=== PATIENT | female | born 1965 | race Caucasian/White ===

== ENCOUNTER 2019-04-25 13:18 | Day surgery (SDC) | payer OTHER ==
[~2019-04-25 13:18] MED LIST: BUPR150T14 PO; CHOL100045 PO; LISI-552 PO
[2019-04-25] MEDS ORDERED: LACTATED RINGERS 1,000 ML IV STA (13:26)
[2019-04-25] MEDS ORDERED: LACTATED RINGERS 1,000 ML IV ONE (13:27)
[2019-04-25] MEDS ORDERED: HURRICAINE EXT TUBE (BENZOCAINE) XX PRN (13:30)
[2019-04-25 13:35] VITALS: BP 133/70
[2019-04-25] MEDS ORDERED: PROPOFOL INJECTION 50 ML IV ONE (13:44)
[2019-04-25] MEDS ORDERED: MIDAZOLAM 2 MG/2 ML (VERSED) VIAL ONE (13:46)
[2019-04-25] MEDS ORDERED: HURRICAINE EXT TUBE (BENZOCAINE) ONE (14:01)
--- NOTE | 2019-04-25 14:11 | Progress Note-Pre Operative ---
Pre-Operative Progress Note H&P Reviewed The H&P was reviewed, patient examined and no changes noted. Date Seen by Provider: Apr 25, 2019 Time Seen by Provider: 14:10 Date H&P Reviewed: Apr 25, 2019 Time H&P Reviewed: 14:10 Pre-Operative Diagnosis: epigastric abdominal pain, nausea, family history of colon cancer SAYRA GRUBER DO Apr 25, 2019 14:11 POS
[2019-04-25] MEDS ORDERED: proPOfol 200 MG/20 ML (DIPRIVAN) VIAL IV ONE (14:35)
[2019-04-25 14:45] VITALS: BP 121/84
[2019-04-25] MEDS ORDERED: PANT40TA2 PO (14:48)
--- NOTE | 2019-04-25 14:49 | Progress Note-Post Operative ---
Post-Operative Progess Note Surgeon (s)/Certified Ophthalmic Surgical Assistant (s) Surgeon SAYRA GRUBER DO Certified Ophthalmic Surgical Assistant: na Pre-Operative Diagnosis epigastric abdominal pain, nausea, family history of colon cancer Post-Operative Diagnosis diverticulosis, colon polyps x 2, gastritis Procedure & Operative Findings Date of Procedure 04/25/19 Procedure Performed/Findings colonoscopy with hot biopsy polypectomy x 2, EGD with biopsies Anesthesia Type per diesel technician Estimated Blood Loss Estimated blood loss (mL): none Specimens/Packing Specimens Removed biopsy of GE junction, antrum, transverse colon polyp, sigmoid polyp SAYRA GRUBER DO Apr 25, 2019 14:49 POS
[2019-04-25 14:50] VITALS: BP 103/60
--- NOTE | 2019-04-25 14:50 | Discharge Inst-Simple/Standard ---
Discharge Inst-Standard Discharge Medications New, Converted or Re-Newed RX: RX on Chart Patient Instructions/Follow Up Plan of Care/Instructions/FU: follow up nicole 2-3 weeks. Activity as Tolerated: Yes Discharge Diet: Regular Diet (high fiber) SAYRA GRUBER DO Apr 25, 2019 14:49 POS
[2019-04-25 14:55] VITALS: BP 103/60
--- NOTE | 2019-04-25 14:58 | Anesthesia-General Post-Op ---
MAC Patient Condition Mental Status/LOC: Same as Preop Cardiovascular: Satisfactory Nausea/Vomiting: Absent Respiratory: Satisfactory Pain: Controlled Complications: Absent Post Op Complications Complications None Follow Up Care/Instructions Patient Instructions None needed. Anesthesiology Discharge Order Discharge Order Patient is doing well, no complaints, stable vital signs, no apparent adverse anesthesia problems. No complications reported per nursing. WILLIAM GASPAR CRNA Apr 25, 2019 14:58 POS
[2019-04-25 15:15] VITALS: BP 109/71
[2019-04-25 15:25] VITALS: BP 109/71
--- NOTE | 2019-04-25 23:14 | OPERATIVE REPORT ---
DATE OF SERVICE: 04/25/2019 PREOPERATIVE DIAGNOSIS: Family history of colon cancer, epigastric abdominal pain and nausea. POSTOPERATIVE DIAGNOSES: Gastritis and colon polyps x2 and diverticulosis. PROCEDURE: EGD with biopsies, colonoscopy with hot biopsy polypectomy x2. SURGEON: Sayra Zuniga DO ANESTHESIA: Per BAT CARRIER. ESTIMATED BLOOD LOSS: None. COMPLICATIONS: None. INDICATIONS: The patient is a 53-year-old female who has been having epigastric abdominal pain and nausea. She also has family history of colon cancer. She understands risks and benefits of procedures and wished to proceed with procedure. Consent was signed in the chart. DESCRIPTION OF PROCEDURE: The patient was taken to the endoscopy suite, placed in left lateral recumbent position. Timeout was performed. Scope was inserted in the mouth, down the esophagus, stomach and into the duodenum without difficulty. There were no polyps, masses or ulcerations within the duodenum. Scope was then slowly retracted back into the stomach where it was further insufflated. Erythematous changes consistent with gastritis and maybe a healing ulcer as well present. Biopsy of the antrum was obtained. Scope was then slowly retracted back and retroflexed just noting some small benign appearing polyps in the stomach. No hiatal hernia. Scope was returned to its normal position, slowly withdrawn to the distal esophagus. Biopsy of the GE junction was obtained. No polyps, masses or ulcerations or erythematous changes. Scope was slowly retracted back to completely remove noting no other pathology. Digital rectal exam was performed. There were no palpable polyps, masses or ulcerations. Scope was inserted in the rectum, advanced all the way to cecum with minimal difficulty. Prep was adequate. Scope was then slowly retracted back. No polyps, masses or ulcerations within the cecum, ascending colon, transverse colon, a small polyp was present, which hot biopsy polypectomy was performed. Scope was continuously retracted back into the descending colon with no polyps, masses or ulcerations. Scope was then continued into the sigmoid colon, which another polyp was present, which hot biopsy polypectomy was performed. Also a minimal amount of diverticulosis present. Scope was then continuously retracted back into the rectum where it was also retroflexed noting no other pathology. Scope was returned to its normal position, slowly withdrawn until completely removed. The patient tolerated procedure well without any complications. She was taken to recovery room in stable condition. RECOMMENDATIONS: The patient due to diverticulosis, recommend high fiber diet. The patient will follow up on the biopsies and will be started on Protonix 40 mg daily. The patient with polyps, which we will await pathology results. The patient would likely benefit from repeat colonoscopy in 3 to 5 years depending upon pathology. Job ID: [id number] DocumentID: [id number] Dictated Date: 04/25/2019 14:48:10 Automobile Leasing Supervisor Date: 04/25/2019 23:13:52 Dictated By: SAYRA ZUNIGA DO
--- OUTSIDE RECORDS SUMMARY | 2019-05-20 20:28 | XMS REPORT ---
Author Author Hanh Olivera [facility] Address [address] [place], [place] [id number] Care Team Providers Care Coverstitch Machine Operator Name Role Phone Danette Olivera PCP Danette Olivera PreferredProvider Allergies and Adverse Reactions Name Reaction Notes No known allergies Plan of Treatment Planned Activity Comments Planned Date Planned Time Plan/Goal CBC With Auto Differential 12/16/2017 12:00 AM Comprehensive metabolic panel 12/16/2017 12:00 AM HEMOGLOBIN A1C 12/16/2017 12:00 AM TSH 12/16/2017 12:00 AM T4, Free 12/16/2017 12:00 AM T3 TOTAL 12/16/2017 12:00 AM ESTROGEN SERUM TOTAL 12/16/2017 12:00 AM PROGESTERONE. 12/16/2017 12:00 AM CELIAC DISEASE PROFILE 12/16/2017 12:00 AM Sleep recording 12/16/2017 12:00 AM Medications Active Name Start Date Estimated Completion Date SIG Co mments Lopreeza 0.5-0.1 mg oral tablet take 1 ta blet by oral route once daily lisinopril 20 mg oral tablet 06/03/2017 ESTELA E 1 TABLET (20 MG) BY ORAL ROUTE ONCE DAILY FOR 90 DAYS for 90 days Name Start Date Expiration Date SIG Comments phentermine 37.5 mg oral tablet 06/25/2016 07/25/2016 take 1 tablet (37.5 mg) by oral route once daily before breakfast for 30 days Bactrim DS 800-160 mg oral tablet 07/21/2016 07/28/2016 take 1 tablet by oral route every 12 hours for 7 days phentermine 37.5 mg oral tablet 07/28/2017 08/27/2017 take 1 tablet (37.5 mg) by oral route once daily before breakfast for 30 days for obesity cephalexin 500 mg oral capsule 09/09/2017 09/16/2017 t yin 1 capsule (500 mg) by oral route every 12 hours for 7 days Discontinued Name Start Date Discontinued Date SIG Comments Cymbalta 30 mg oral capsule,delayed release(/EC) 06/03/2017 07/28/2017 take 1 capsule (30 mg) by oral route AM AND AT 5PM didn't like the way it made feel- like a zombie- quit 08-07-18 amoxicillin 875 mg oral tablet 07/28/2017 09/09/2017 t yin 1 tablet (875 mg) by oral route every 12 hours for 10 days Problem List Description Status Onset Hypertension Active Vital Signs Date Time BP-Sys(mm[Hg] BP-Monse(mm[Hg]) HR(bpm) RR(rpm) Temp WT HT HC BMI BSA BMI Percentile O2 Sat(%) 12/16/2017 3:50:00 PM 128 mmHg 84 mmHg 82 bpm 18 rpm 98.4 F 205.125 lbs 62 in 37.5175 kg/m 2.0175 m 98 % 12/16/2017 3:50:00 PM 128 mmHg 84 mmHg 82 bpm 18 rpm 98.4 F 205.125 lbs 62 in 37.5175 kg/m 2.0175 m 98 % 09/09/2017 5:08:00 PM 130 mmHg 70 mmHg 89 bpm 98.2 F 202.25 lbs 62 in 36.99 kg/m2 2.00 m2 97 % 07/28/2017 3:42:00 PM 132 mmHg 84 mmHg 78 bpm 18 rpm 97.8 F 208.25 lbs 62 in 38.089 kg/m 2.0328 m 99 % 06/03/2017 3:43:00 PM 124 mmHg 78 mmHg 80 bpm 18 rpm 97.8 F 204.25 lbs 62 i n 37.36 kg/m2 2.01 m2 99 % 05/05/2017 4:14:00 PM 122 mmHg 74 mmHg 82 bpm 18 rpm 97.8 F 209.25 lbs 62 in 38.2719 kg/m 2.0376 m 99 % 07/21/2016 5:14:00 PM 138 mmHg 78 mmHg 122 bpm 18 rpm 102.2 F 186.5 lbs 62 in 34.11 kg/m2 1.92 m2 97 % 06/25/2016 4:20:00 PM 138 mmHg 84 mmHg 84 bpm 18 rpm 97.7 F 186.062 lbs 62 i n 34.0309 kg/m 1.9214 m 99 % Social History Name Description Comments Tobacco Never smoker Alcohol Never Caffeine Current every day 1 day History of Procedures Date Ordered Description Order Status 06/25/2016 12:00 AM COMPLETE CBC W/AUTO DIFF WBC Reviewed 06/25/2016 12:00 AM COMPREHEN METABOLIC PANEL Reviewed 06/25/2016 12:00 AM GLYCOSYLATED HEMOGLOBIN TEST Reviewed 06/25/2016 12:00 AM ROUTINE VENIPUNCTURE Reviewed 07/21/2016 12:00 AM INFLUENZA A/B AG EIA Reviewed 07/21/2016 12:00 AM URNLS DIP STICK/TABLET RGNT AUTO W/O KAREN ROSCOPY Reviewed 05/05/2017 12:00 AM COMPLETE CBC W/AUTO DIFF WBC Reviewed 05/05/2017 12:00 AM COMPREHEN METABOLIC PANEL Reviewed 05/05/2017 12:00 AM GLYCOSYLATED HEMOGLOBIN TEST Reviewed 05/05/2017 12:00 AM ASSAY THYROID STIM HORMONE Reviewed 05/05/2017 12:00 AM ASSAY OF FREE THYROXINE Reviewed 05/05/2017 12:00 AM ASSAY TRIIODOTHYRONINE (T3) Reviewed 05/05/2017 12:00 AM ANH-MCCRAY ANTIBODY Reviewed 05/05/2017 12:00 AM ANH-MCCRAY NUCLEAR ANTIGEN Reviewed 05/05/2017 12:00 AM ANH-MCCRAY CAPSID VCA Reviewed 05/05/2017 12:00 AM ROUTINE VENIPUNCTURE Reviewed 06/03/2017 12:00 AM ANH-MCCRAY ANTIBODY Reviewed 06/03/2017 12:00 AM ANH-MCCRAY NUCLEAR ANTIGEN Reviewed 06/03/2017 12:00 AM ANH-MCCRAY CAPSID VCA Reviewed 09/09/2017 12:00 AM URINE CULTURE/COLONY COUNT Reviewed Results Summary Date and Description Results 06/25/2016 5:25 PM HGB A1C 5.30 %Est Avg Glucos e 105.4 mg/dLGLUCOSE 97.0 mg/dLSODIUM 139.0 mmol/LPOTASSIUM 4.0 mmol/LCHLORIDE 105.0 mmol/LCO2 23.0 mmol/LBUN 13.0 mg/dLCREATININE 0.80 mg/dLSGOT/AST 17.0 IU/LSGPT/ALT 15.0 IU/LALK PHOS 83.0 IU/LTOTAL PROTEIN 7.50 g/dLALBUMIN 4.60 g/dLTOTAL BILI 0.20 mg/dLCALCIUM 9.60 mg/dLAGE 50 GFR NonAA 75 GFR AA 91 eGFR >60 mL/min/1.73meGFR AA* >60 WBC 8.3 RBC 4.56 HGB 13.90 g/dLHCT 40.60 %MCV 89.0 fLMCH 30.50 pgMCHC 34.20 g/dLRDW SD 42 RDW CV 12.90 %MPV 8.70 fLPLT 388 NRBC# 0.00 NRBC% 0.0 %NEUT 62.0 %%LYMP 28.20 %%MONO 6.0 %%EOS 2.40 %%BASO 0.70 %#NEUT 5.12 #LYMP 2.33 #MONO 0.50 #EOS 0.20 #BASO 0.06 MANUAL DIFF NOT IND 07/21/2016 6:11 PM COLOR YELLOW APPEARANCE HAZY SPEC GRAV 1.020 pH 8.0 PROTEIN 30 GLUCOSE NEGATIVE mg/dLKETONE TRACE BILIRUBIN NEGATIVE BLOOD SMALL NITRITE NEGATIVE LEUK SCREEN NEGATIVE MICRO INDICATED? SEE BELOW WBC/HPF 0-5 RBC/HPF 0-5 CASTS/LPF NEGATIVE /LPFCRYSTALS 2++ AMORPHOUS MUCOUS THRDS NEGATIVE BACTERIA 1+ EPITH CELLS 1+ SQUAMOUS /HPFTRICHOMONAS NEGATIVE YEAST NEGATIVE CULT SET UP? NO 07/21/2016 6:14 PM INFLUENZA A & B NO INFLUENZA A OR B DETECTED History Of Immunizations Not available. History of Past Illness Name Date of Onset Comments Breast Lump Hypertension Benign essential hypertension Jun 25 2016 4:23PM Hyperglycemia Jun 25 2016 4:23PM Family history of diabetes mellitus (DM) Jun 25 2016 4:23PM Obesity (BMI 30.0-34.9) Jun 25 2016 4:23PM Frequency of urination Jun 25 2016 4:23PM Fever in other diseases Jul 21 2016 5:16PM Dysuria Jul 21 2016 5:16PM Cough Jul 21 2016 5:16PM Other fatigue May 05 2017 4:18PM Hypothyroidism, Acquired May 05 2017 4:18PM Obesity May 05 2017 4:18PM Seasonal affective disorder May 05 2017 4:18PM Family history of diabetes mellitus in brother May 05 2017 4:18PM Muscle fatigue May 05 2017 4:18PM DDD (degenerative disc disease), thoracolumbar May 05 2017 4:18PM Irritable bowel syndrome with constipation May 05 2017 4:18 PM Chronic fatigue Jun 03 2017 3:46PM Hypertension, Benign Essential Jun 03 2017 3:46PM Fibromyalgia Jun 03 2017 3:46PM Anxiety Jun 03 2017 3:46PM Anh Mccray infection Jun 03 2017 3:46PM Urinary tract infection Sep 09 2017 5:12PM Hematuria Sep 09 2017 5:12PM Dysuria Sep 09 2017 5:12PM Purulent rhinitis Jul 28 2017 3:45PM Obesity (BMI 30-39.9) Jul 28 2017 3:45PM Other fatigue Dec 16 2017 3:51PM Hypertension Dec 16 2017 3:51PM Hormone replacement therapy Dec 16 2017 3:51PM Snoring Dec 16 2017 3:51PM Somnolence, daytime Dec 16 2017 3:51PM Abdominal cramping Dec 16 2017 3:51PM Family history of diabetes mellitus in first degree re lative Dec 16 2017 3:51PM Payers Insurance Name Company Name Plan Name Plan Number Policy Number [employer] Group Number Start Date [facility] [id number] N/A History of Encounters Visit Date Visit Type Provider 12/16/2017 Office visit Danette Cifuentes PRN 09/09/2017 Office visit Randi Newsome APR N 07/28/2017 Office visit Danette Cifuentes PRN 06/03/2017 Office visit Danette Cifuentes PRN 05/05/2017 Office visit Danette Cifuentes PRN 07/21/2016 Office visit Mikhail Ryan APR N 06/25/2016 Office visit Danette Cifuentes PRN
--- OUTSIDE RECORDS SUMMARY | 2019-05-20 20:28 | XMS REPORT ---
Author Author Hanh Olivera [facility] Address [address] [place], [place] [phone] Care Team Providers Care Digital Performance Analyst Name Role Phone Danette Olivera PCP Danette Olivera PreferredProvider Allergies and Adverse Reactions Name Reaction Notes No known allergies Plan of Treatment Planned Activity Comments Planned Date Planned Time Plan/Goal EBV PROFILE 06/03/2017 12:00 AM EBV PROFILE 06/03/2017 12:00 AM EBV PROFILE 06/03/2017 12:00 AM Medications Active Name Start Date Estimated Completion Date SIG Co mments Lopreeza 0.5-0.1 mg oral tablet take 1 ta blet by oral route once daily Cymbalta 30 mg oral capsule,delayed release(DR/EC) 06/03/2017 take 1 capsule (30 mg) by oral route AM AND AT 5PM lisinopril 20 mg oral tablet 06/03/2017 ESTELA [...] route every 12 hours for 7 days Problem List Description Status Onset Hypertension Active Vital Signs Date Time BP-Sys(mm[Hg] BP-Monse(mm[Hg]) HR(bpm) RR(rpm) Temp WT HT HC BMI BSA BMI Percentile O2 Sat(%) 06/03/2017 3:43:00 PM 124 mmHg 78 mmHg [...] Reviewed 05/05/2017 12:00 AM ROUTINE VENIPUNCTURE Reviewed Results Summary Date and Description Results [...] Anh Mccray infection Jun 03 2017 3:46PM Payers Insurance Name Company Name Plan Name Plan Number Policy Number [employer] Group Number Start Date [facility] [id number] N/A History of Encounters Visit Date Visit Type Provider 06/03/2017 Office visit Danette Cifuentes PRN 05/05/2017 Office visit Danette NIXN 07/21/2016 Office visit Mikhail Ryan APR N 06/25/2016 Office visit Danette NIXN
--- OUTSIDE RECORDS SUMMARY | 2019-05-20 20:28 | XMS REPORT ---
Author Author Hanh Newsome Organization [facility] Address [address] [place], [place] [address] Care Team Providers Care Air Intercept Controller Name Role Phone Randi Newsome PCP Danette Olivera PreferredProvider Allergies and Adverse Reactions Name Reaction Notes No known allergies Plan of Treatment Not available. Medications Active Name Start Date Estimated Completion [...] SIG Comments Cymbalta 30 mg oral capsule,delayed release(DR/EC) 06/03/2017 07/28/2017 take 1 capsule (30 mg) [...] HC BMI BSA BMI Percentile O2 Sat(%) 09/09/2017 5:08:00 PM 130 mmHg 70 mmHg 89 bpm 98.2 F 202.25 lbs 62 in 36.9916 kg/m 2.0033 m 97 % 07/28/2017 3:42:00 PM 132 mmHg 84 mmHg 78 bpm 18 rpm 97.8 F 208.25 lbs 62 in 38.09 kg/m2 2.03 m2 99 % 06/03/2017 3:43:00 PM 124 mmHg [...] Obesity (BMI 30-39.9) Jul 28 2017 3:45PM Payers Insurance Name Company Name Plan Name Plan Number Policy Number [employer] Group Number Start Date [facility] [id number] N/A History of Encounters Visit Date Visit Type Provider 09/09/2017 Office visit Randi Newsome APR N 07/28/2017 Office visit Danette Cifuentes PRN 06/03/2017 Office visit Danette Cifuentes PRN 05/05/2017 Office visit Danette Cifuentes PRN 07/21/2016 Office visit Mikhail Ryan APR N 06/25/2016 Office visit Danette ESPARZA
--- OUTSIDE RECORDS SUMMARY | 2019-05-20 20:28 | XMS REPORT ---
Author Author Hanh Olivera [facility] Address [address] [place], [place] [address] Care Team Providers Care Crossing Tender Name Role Phone Danette Olivera PCP Danette [...] Number [employer] Group Number Start Date [facility] [id number] N/A History of Encounters Visit Date Visit Type Provider 12/16/2017 Office visit Danette Cifuentes PRN 09/09/2017 Office visit Randi Newsome APR N 07/28/2017 Office visit Danette Cifuentes PRN 06/03/2017 Office visit Danette Cifuentes PRN 05/05/2017 Office visit Danette Cifuentes PRN 07/21/2016 Office visit Mikhail Ryan APR N 06/25/2016 Office visit Danette Cifuentes PRN
--- OUTSIDE RECORDS SUMMARY | 2019-05-20 20:28 | XMS REPORT ---
Author Author Hanh Newsome Organization [facility] Address [address] [place], [place] [id number] Care Team Providers Care Production Worker Name Role Phone Randi Newsome PCP Danette [...] 2017 5:12PM Dysuria Sep 09 2017 5:12PM Payers Insurance Name Company Name Plan Name Plan Number Policy Number [employer] Group Number Start Date [facility] [id number] N/A History of Encounters Visit Date Visit Type Provider 09/09/2017 Office visit Randi Newsome APR N 07/28/2017 Office visit Danette Cifuentes PRN 06/03/2017 Office visit Danette Cifuentes PRN 05/05/2017 Office visit Danette Cifuentes PRN 07/21/2016 Office visit Mikhail Ryan APR N 06/25/2016 Office visit Danette Cifuentes PRN
--- OUTSIDE RECORDS SUMMARY | 2019-05-20 20:28 | XMS REPORT ---
Author Author Hanh Olivera [facility] Address [address] [place], [place] [address] Care Team Providers Care Student Nurse Name Role Phone Danette Olivera PCP Danette Olivera PreferredProvider Allergies and Adverse Reactions Name Reaction Notes No known allergies Plan of Treatment Planned Activity Comments Planned Date Planned Time Plan/Goal CBC With Auto Differential 05/05/2017 12:00 AM Comprehensive metabolic panel 05/05/2017 12:00 AM HEMOGLOBIN A1C 05/05/2017 12:00 AM TSH 05/05/2017 12:00 AM T4, Free 05/05/2017 12:00 AM T3 TOTAL 05/05/2017 12:00 AM EBV PROFILE 05/05/2017 12:00 AM EBV PROFILE 05/05/2017 12:00 AM EBV PROFILE 05/05/2017 12:00 AM Medications Active Name Start Date Estimated Completion Date SIG Co mments Lopreeza 0.5-0.1 mg oral tablet take 1 ta blet by oral route once daily lisinopril 20 mg oral tablet 12/31/2016 ANNABEL E 1 TABLET (20 MG) BY ORAL ROUTE ONCE DAILY FOR 90 DAYS Cymbalta 30 mg oral capsule,delayed release(DR/EC) 05/05/2017 take 1 capsule (30 mg) by oral route once daily for 30 days Name Start Date Expiration Date SIG Comments phentermine 37.5 mg oral tablet 06/25/2016 07/25/2016 take 1 tablet (37.5 mg) by oral route once daily before breakfast for 30 days lisinopril 20 mg oral tablet 06/25/2016 12/22/2016 annabel e 1 tablet (20 mg) by oral route once daily for 90 days Bactrim DS 800-160 mg oral tablet 07/21/2016 07/28/2016 take 1 tablet by oral route every 12 hours for 7 days Problem List Description Status Onset Hypertension Active Vital Signs Date Time BP-Sys(mm[Hg] BP-Monse(mm[Hg]) HR(bpm) RR(rpm) Temp WT HT HC BMI BSA BMI Percentile O2 Sat(%) 05/05/2017 4:14:00 PM 122 mmHg 74 mmHg 82 bpm 18 rpm 97.8 F 209.25 lbs 62 in 38.27 kg/m2 2.04 m2 99 % 07/21/2016 5:14:00 PM 138 mmHg 78 mmHg 122 bpm 18 rpm 102.2 F 186.5 lbs 62 in 34.1109 kg/m 1.9237 m 97 % 06/25/2016 4:20:00 PM 138 mmHg 84 mmHg 84 bpm 18 rpm 97.7 F 186.062 lbs 62 i n 34.03 kg/m2 1.92 m2 99 % Social History Name Description Comments [...] W/O KAREN ROSCOPY Reviewed 05/05/2017 12:00 AM ROUTINE VENIPUNCTURE Reviewed [...] with constipation May 05 2017 4:18 PM Payers Insurance Name Company Name Plan Name Plan Number Policy Number [employer] cy Group Number Start Date [facility] [id number] N/A History of Encounters Visit Date Visit Type Provider 05/05/2017 Office visit Danette ESPARZA 07/21/2016 Office visit Mikhail Ryan APR N 06/25/2016 Office visit Danette ESPARZA
--- OUTSIDE RECORDS SUMMARY | 2019-05-20 20:28 | XMS REPORT ---
Author Author Hanh Ryan Organization [facility] Address [address] [place], [place] [address] Care Team Providers Care Hand Singer Name Role Phone Mikhail Ryan PCP MarkconisidneyDanette hopper PreferredProvider [phone] Allergies and Adverse Reactions Name Reaction Notes No known allergies Plan of Treatment Not available. Medications Active Name Start Date Estimated Completion Date SIG Co mments Lopreeza 0.5-0.1 mg oral tablet take 1 ta blet by oral route once daily lisinopril 20 mg oral tablet 06/25/2016 12/22/2016 annabel e 1 tablet (20 mg) by oral route once daily for 90 days Name Start Date Expiration [...] HC BMI BSA BMI Percentile O2 Sat(%) 07/21/2016 5:14:00 PM 138 mmHg 78 mmHg [...] STICK/TABLET RGNT AUTO W/O KAREN ROSCOPY Reviewed Results Summary Data and Description Results 06/25/2016 5:25 PM HGB [...] in other diseases Jul 21 2016 5:16PM Payers Insurance Name Company Name Plan Name Plan Number Policy Number [employer] cy Group Number Start Date [facility] [id number] N/A History of Encounters Visit Date Visit Type Provider 07/21/2016 Office visit Mikhail Ryan APR N 06/25/2016 Office visit Danette ESPARZA
--- OUTSIDE RECORDS SUMMARY | 2019-05-20 20:28 | XMS REPORT ---
Author Author Hanh Ryan Organization [facility] Address [address] [place], [place] [address] Care Team Providers Care Retail Route Supervisor Name Role Phone Mikhail Ryan PCP MarkconichicoDanette PreferredProvider [phone] Allergies and Adverse Reactions Name Reaction Notes No known allergies Plan of Treatment Not available. Medications Active Name Start Date Estimated Completion Date SIG Co mments Lopreeza 0.5-0.1 mg oral tablet take 1 ta blet by oral route once daily lisinopril 20 mg oral tablet 12/31/2016 ANNABEL E 1 TABLET (20 MG) BY ORAL ROUTE ONCE DAILY FOR 90 DAYS Name Start Date Expiration Date SIG Comments [...] AUTO W/O KAREN ROSCOPY Reviewed Results Summary Date and Description Results [...] 2016 5:16PM Cough Jul 21 2016 5:16PM Payers Insurance Name Company Name Plan Name Plan Number Policy Number [employer] cy Group Number Start Date [facility] [id number] N/A History of Encounters Visit Date Visit Type Provider 07/21/2016 Office visit Mikhail Ryan APR N 06/25/2016 Office visit Danette ESPARZA
== END 2019-04-25 15:25 | disposition home or self-care (01) ==
LOC: ENDO 13:18
PROVIDERS: ATTEND Surgery
DX: D12.5 Benign neoplasm of sigmoid colon (principal); K63.5 Polyp of colon; K21.0 Gastro-esophageal reflux disease with esophagitis; K29.70 Gastritis, unspecified, without bleeding; K57.30 Diverticulosis of large intestine without perforation or abscess without bleeding; I10 Essential (primary) hypertension; Z79.899 Other long term (current) drug therapy; Z90.89 Acquired absence of other organs; Z80.0 Family history of malignant neoplasm of digestive organs; Z82.49 Family history of ischemic heart disease and other diseases of the circulatory system; Z83.3 Family history of diabetes mellitus
CPT/HCPCS: 88305

== ENCOUNTER → 2021-05-13 | Outpatient (CLI) | payer OTHER ==
[~2021-05-13] MED LIST changes: -LISI-552 PO; +LISI20TA26 PO; +PANT40TA2 PO
--- NOTE | 2021-05-14 14:54 | Diagnostic Imaging Report ---
Indication: Routine screening. Comparison is made with right-sided mammogram from 08/02/2017. No prior bilateral mammograms are available for comparison. 2-D and 3-D bilateral screening mammography was performed with CAD. Right breast appears stable. There is a biopsy marker clip in the right breast. No masses are seen. No malignant-appearing microcalcifications are identified. Axillae are unremarkable. IMPRESSION: BI-RADS Category 2 No mammographic features suspicious for malignancy are identified. ACR BI-RADS Category 2: Benign findings. Result letter will be mailed to the patient. Note: At least 10% of breast cancer is not imaged by mammography. Dictated by: Dictated on workstation # [id number]
== END ==
LOC: RAD 15:45
PROVIDERS: ATTEND Internal Medicine
DX: Z12.31 Encounter for screening mammogram for malignant neoplasm of breast (principal)
CPT/HCPCS: 77063; 77067

== ENCOUNTER → 2022-07-03 | Outpatient (CLI) | payer OTHER ==
[~2022-07-03] MED LIST changes: +BUPR-105 PO; -BUPR150T14 PO
--- NOTE | 2022-07-03 10:58 | Diagnostic Imaging Report ---
Indication: Routine screening. Comparison is made with prior mammogram 05/13/2021. 2-D and 3-D bilateral screening mammography was performed with CAD. CAD is utilized. The current study was also evaluated with a Computer Aided Detection (CAD) system. Scattered fibroglandular densities are identified bilaterally. The parenchymal pattern is stable. No mass or malignant-appearing microcalcifications are seen. Biopsy marker clip right breast is noted. Axillae are unremarkable. IMPRESSION: BI-RADS Category 2 No mammographic features suspicious for malignancy are identified. ACR BI-RADS Category 2: Benign findings. Result letter will be mailed to the patient. Note: At least 10% of breast cancer is not imaged by mammography. Dictated by: Dictated on workstation # [id number]
== END ==
LOC: RAD 07:50
PROVIDERS: ATTEND Internal Medicine
DX: Z12.31 Encounter for screening mammogram for malignant neoplasm of breast (principal)
CPT/HCPCS: 77063; 77067

== ENCOUNTER → 2022-08-05 | Outpatient (CLI) | payer OTHER ==
[~2022-08-05] VITALS: Ht 157.5 cm; Wt 99.8 kg
[~2022-08-05] MED LIST changes: +AMLO-250 PO; +HYDR12.56 PO
== END ==
LOC: PREOP 06:07
PROVIDERS: ATTEND Surgery
DX: Z01.818 Encounter for other preprocedural examination (principal); Z80.0 Family history of malignant neoplasm of digestive organs

== ENCOUNTER 2022-08-18 10:30 | Day surgery (SDC) | payer OTHER ==
[~2022-08-18] VITALS: Ht 157.5 cm; Wt 99.8 kg
[2022-08-18] MEDS ORDERED: LACTATED RINGERS 1,000 ML IV STA (10:32)
[2022-08-18 10:55] VITALS: BP 142/83
[2022-08-18] MEDS ORDERED: PROPOFOL INJECTION 50 ML IV ONE (11:05)
--- NOTE | 2022-08-18 11:27 | Progress Note-Post Operative ---
Post-Operative Progess Note Surgeon (s)/Advertising Sales Consultant (s) Surgeon SAYRA GRUBER DO Advertising Sales Consultant: na Pre-Operative Diagnosis history of polyps, family history of colon cancer Post-Operative Diagnosis Diverticulosis Colon polyps Procedure & Operative Findings Date of Procedure 08/18/22 Procedure Performed/Findings Colonoscopy with hot biopsy polypectomy x 2 Anesthesia Type per gym instructor Estimated Blood Loss Estimated blood loss (mL): none Specimens/Packing Specimens Removed Colon polyps x 2 SAYRA GRUBER DO Aug 18, 2022 11:27
--- NOTE | 2022-08-18 11:28 | Discharge Inst-Simple/Standard ---
Discharge Inst-Standard Patient Instructions/Follow Up Plan of Care/Instructions/FU: 2 weeks Efrain Activity as Tolerated: Yes Discharge Diet: Regular Diet (high fiber) SAYRA GRUBER DO Aug 18, 2022 11:28
[2022-08-18 11:30] VITALS: BP 118/57
[2022-08-18 11:35] VITALS: BP 118/57
--- NOTE | 2022-08-18 12:17 | Anesthesia-General Post-Op ---
MAC Patient Condition Mental Status/LOC: Same as Preop Cardiovascular: Satisfactory Nausea/Vomiting: Absent Respiratory: Satisfactory Pain: Controlled Complications: Absent Post Op Complications Complications None Follow Up Care/Instructions Patient Instructions None needed. Anesthesiology Discharge Order Discharge Order Patient is doing well, no complaints, stable vital signs, no apparent adverse anesthesia problems. No complications reported per nursing. BIBIANA WELSH CRNA Aug 18, 2022 12:17
[2022-08-18 12:20] VITALS: BP 118/57
--- NOTE | 2022-08-18 17:38 | OPERATIVE REPORT ---
DATE OF SERVICE: 08/18/2022 PREOPERATIVE DIAGNOSIS: History of polyps. POSTOPERATIVE DIAGNOSIS: Colon polyps. PROCEDURE: Colonoscopy with hot biopsy polypectomy x2. SURGEON: Sayra Zuniga DO ANESTHESIA: Per SECURITY TECHNICIAN. ESTIMATED BLOOD LOSS: None. COMPLICATIONS: None. INDICATIONS: The patient is a 57-year-old female, needing colonoscopy. She understands risks and benefits of procedure and wished to proceed. Consent was signed in chart. DESCRIPTION OF PROCEDURE: The patient was taken to endoscopy suite, placed in left lateral recumbent position. Timeout was performed. Digital rectal exam was performed. No palpable polyps, masses or ulcerations. Scope was inserted in the rectum, advanced all the way to the cecum with minimal difficulty. Prep was adequate. Scope was then slowly retracted back. No polyps, masses or ulcerations in the cecum, ascending, transverse and descending colon. In the sigmoid colon, a small polyp was present, which hot biopsy polypectomy was performed. Also noted diverticulosis. The scope was then continuously retracted back to the rectum where another small polyp was present, which hot biopsy polypectomy was performed. Scope was retroflexed noting no other pathology. Scope was returned to its normal position, slowly withdrawn until completely removed. The patient tolerated the procedure well without complications, taken to recovery room in stable condition. RECOMMENDATIONS: Due to diverticulosis, we would recommend high fiber diet. History of polyps and current polyps, I would recommend repeat colonoscopy in 5 years. Any issues before that, be seen at that time. She will follow up in pathology in 2 weeks. Job ID: [id number] DocumentID: [id number] Dictated Date: 08/18/2022 11:32:44 Flame Cutting Supervisor Date: 08/18/2022 17:36:00 Dictated By: SAYRA ZUNIGA DO
== END 2022-08-18 12:30 | disposition home or self-care (01) ==
LOC: ENDO 10:30
PROVIDERS: ATTEND Surgery
DX: Z12.11 Encounter for screening for malignant neoplasm of colon (principal); K63.5 Polyp of colon; K62.1 Rectal polyp; K57.30 Diverticulosis of large intestine without perforation or abscess without bleeding; Z80.0 Family history of malignant neoplasm of digestive organs; E66.01 Morbid (severe) obesity due to excess calories; Z68.41 Body mass index [BMI] 40.0-44.9, adult
CPT/HCPCS: 88305

== ENCOUNTER → 2023-01-08 | Outpatient (CLI) | payer OTHER ==
--- NOTE | 2023-01-08 08:40 | Diagnostic Imaging Report ---
EXAMINATION: CT abdomen and pelvis with intravenous contrast. TECHNIQUE: Multiple contiguous axial images were obtained through the abdomen and pelvis after the uneventful administration of intravenous contrast. All CT scans use one or more of the following dose optimizing techniques: automated exposure control, MA and/or KvP adjustment based on patient size and exam type or iterative reconstruction. HISTORY: Generalized abdominal pain COMPARISON: None available. FINDINGS: Lung bases: The lung bases are clear. Solid organs: There is diffuse hypoattenuation of the liver which can be seen with hepatic steatosis. The gallbladder is normal. There is no biliary ductal dilation. Pancreas is normal. Spleen is normal. Adrenal glands are normal. The kidneys are normal without hydronephrosis. Bowel: The stomach and small bowel are normal without obstruction. There is scattered colonic diverticulosis. There are no secondary signs of acute appendicitis. Peritoneum: There is no intraperitoneal free fluid or free air. No suspicious lymphadenopathy. Vasculature: Normal without aneurysm. Musculoskeletal: Degenerative changes of the spine without suspicious osseous lesion or compression fracture. Pelvis: The uterus and adnexa are normal. The urinary bladder is normal. IMPRESSION: 1. No acute abnormality in the abdomen or pelvis. 2. Hepatic steatosis. Dictated by: Dictated on workstation # [id number]
== END ==
LOC: RAD 06:41
PROVIDERS: ATTEND Internal Medicine
DX: K76.0 Fatty (change of) liver, not elsewhere classified (principal)
CPT/HCPCS: 74177

== ENCOUNTER → 2023-01-27 | Outpatient (CLI) | payer OTHER ==
--- NOTE | 2023-01-27 11:19 | Diagnostic Imaging Report ---
PROCEDURE: US Gallbladder. TECHNIQUE: Multiple real-time grayscale images were obtained over the right upper quadrant in various projections. INDICATION: Epigastric pain. Liver is upper limits of normal size 18 cm. Portal vein is patent and shows normal direction of flow. Liver demonstrates increased echogenicity consistent with hepatic steatosis. Gallbladder is without stones or sludge. There is no wall thickening or biliary duct dilatation. Pancreas was obscured by bowel gas. Proximal aorta is nonaneurysmal. Proximal IVC is patent. Right kidney is without calculi or hydronephrosis. There is no ascites. IMPRESSION: 1. Hepatic steatosis. 2. No evidence of cholelithiasis or acute cholecystitis. Dictated by: Dictated on workstation # [id number]
== END ==
LOC: RAD 08:04
PROVIDERS: ATTEND Surgery
DX: K76.0 Fatty (change of) liver, not elsewhere classified (principal)
CPT/HCPCS: 76705

== ENCOUNTER → 2023-02-11 | Outpatient (CLI) | payer OTHER ==
[~2023-02-11] MED LIST changes: +CATHETER FLUSH 10 ML SYR IVP PRN
--- NOTE | 2023-02-11 14:03 | Diagnostic Imaging Report ---
INDICATION: Upper gastric pain. The patient was administered 5.5 mCi technetium 99m Choletec intravenously and imaging over the abdomen was performed. At 45 minutes, the patient ingested 8 ounces of Ensure and a gallbladder ejection fraction was calculated. There is homogeneous uptake of activity by the liver with prompt excretion of activity into the common duct and gallbladder. There is normal passage of activity into the small bowel. Gallbladder ejection fraction is abnormally low at 12.5%. Normal values are 35% or greater. IMPRESSION: 1. Patent cystic duct and common bile duct. 2. Low gallbladder ejection fraction of 12.5%. Dictated by: Dictated on workstation # [id number]
== END ==
LOC: CARD 09:21
PROVIDERS: ATTEND Surgery
DX: R10.13 Epigastric pain (principal)
CPT/HCPCS: 78227; A9537

== ENCOUNTER 2023-02-25 05:29 | Outpatient (CLI) | payer OTHER ==
[~2023-02-25] VITALS: Ht 157.5 cm; Wt 99.8 kg
[~2023-02-25 05:29] MED LIST changes: -CATHETER FLUSH 10 ML SYR IVP PRN
[2023-02-25] MEDS ORDERED: PANT40GR PO (09:09)
[2023-03-04] MEDS ORDERED: ACHD5005 PO (10:10)
[2023-03-04] MEDS ORDERED: DOCU-143 PO (10:10)
== END 2023-02-25 14:11 | disposition home or self-care (01) ==
LOC: PREOP 05:29
PROVIDERS: ATTEND Surgery
DX: Z01.818 Encounter for other preprocedural examination (principal)

== ENCOUNTER 2023-03-04 07:11 | Day surgery (SDC) | payer OTHER ==
[~2023-03-04] VITALS: Ht 157 cm; Wt 99.8 kg
[2023-03-04] VITALS (12 sets, daily range): BP systolic 99–156; BP diastolic 50–83
[~2023-03-04 07:11] MED LIST changes: +PANT40GR PO
[2023-03-04] MEDS ORDERED: ceFAZolin INJECTION 2,000 MG in NS (IVPB) 50 ML 50 ML IV ONE (07:30)
[2023-03-04] MEDS ORDERED: ceFAZolin INJECTION 2,000 MG ONE (07:42)
[2023-03-04] MEDS ORDERED: NS (IVPB) 50 ML 50 ML ONE (07:42)
[2023-03-04] MEDS ORDERED: LIDOCAINE 2% w/EPI 1:100,000 20 ML VIAL ONE (07:44)
[2023-03-04] MEDS: LACTATED RINGERS 1,000 ML 1,000 ML IV PRN ×2 (07:46→09:28)
[2023-03-04] MEDS ORDERED: MIDAZOLAM INJ 2 MG/2 ML VIAL ONE ×2 (07:48→08:14)
--- NOTE | 2023-03-04 07:56 | Progress Note-Pre Operative ---
Pre-Operative Progress Note Date H&P Reviewed: Mar 04, 2023 Time H&P Reviewed: 07:55 History & Physical: H&P Reviewed, Patient Examed, No changes noted Pre-Operative Diagnosis: biliary dyskinesia SAYRA GRUBER DO Mar 04, 2023 07:56
[2023-03-04] MEDS ORDERED: MIDAZOLAM INJ 2 MG/2 ML VIAL IV ONE (08:00)
[2023-03-04] MEDS ORDERED: proPOfol INJECTION 200 MG/20 ML VIAL IV ONE (08:13)
[2023-03-04] MEDS ORDERED: LIDOCAINE PF 2% 5 ML VIAL ONE (08:13)
[2023-03-04] MEDS ORDERED: ONDANSETRON INJECTION 4 MG/2 ML (SDV) ONE (08:13)
[2023-03-04] MEDS ORDERED: fentaNYL INJECTION 100 MCG/2 ML VIAL ONE (08:13)
[2023-03-04] MEDS ORDERED: SEVOFLURANE (ULTANE) 15 ML INHAL SOLN ONE (08:13)
[2023-03-04] MEDS ORDERED: PHENYLEPHRINE 100 MCG/ML 10 ML (ANESTHESIA) SYR ONE (09:19)
[2023-03-04] MEDS ORDERED: ATROPINE INJ 0.4 MG/ML SDV ONE (09:21)
[2023-03-04] MEDS ORDERED: NEOSTIGMINE 1 MG/1ML 10 ML VIAL ONE (09:57)
[2023-03-04] MEDS ORDERED: GLYCOPYRROLATE INJ 0.2 MG/ML 2 ML VIAL ONE (09:57)
--- NOTE | 2023-03-04 10:09 | Progress Note-Post Operative ---
Post-Operative Progess Note Surgeon (s)/Blood Bank Laboratory Professional (s) Surgeon SAYRA GRUBER DO Blood Bank Laboratory Professional: Dr. Loza to assist in retraction dissection and closure. Pre-Operative Diagnosis biliary dyskinesia Post-Operative Diagnosis biliary dyskinesia, umbilical hernia Procedure & Operative Findings Date of Procedure 03/04/23 Procedure Performed/Findings PROCEDURE: Laparoscopic cholecystectomy with intraoperative cholangiogram, primary umbilical hernia repair. COMPLICATIONS: None. PROCEDURE: The patient was taken to the operating suite and was prepped and draped in sterile fashion. A surgical pause was performed. Just superior to the umbilicus, a 12 mm incision was made. Dissection was taken down to the fascia, which was then scored and grasped with a Mimi and the abdomen was then entered. Small umbilical hernia present dissected free and incorporated into incision. An 0 Vicryl suture was placed in a [id number] fashion, and a Sanchez trocar was placed and secured. Pneumoperitoneum was achieved. A 5mm trochar place in the subxyphoid and 2 in the right upper quadrant. Dr. Loza then retracted gallbladder which was then grasped and elevated. The cystic duct, and cystic artery were then dissected out. Clip was placed on the distal portion of the cystic duct which was then partially transected. An arrow catheter was attempted to be inserted into the duct. Had to use taut catheter through an angiocath through abdominal wall and once cathteter in duct A clip was placed to hold the catheter in place for cholangiogram. The cholangiogram was then performed. No filing defects and contrast made its way into the duodenum. Catheter removed. Clips were placed on proximal portion of the cystic duct and then the duct was then transected. Clips were placed along the proximal and distal portion of the cystic artery which was then transected. Hook cautery was used to dissect the gallbladder from the gallbladder fossa achieving hemostasis. The gallbladder was placed in an Endobag and removed through the 12 mm trocar site. The abdomen was then reinspected. Copious amounts of irrigation were used to irrigate the abdomen and there were no signs of active bleeding. Hemostasis had been achieved. The 12 mm fascial defect and hernia was then closed with 0 Vicryl suture that had been placed in a [id number] fashion. The abdomen was then desufflated, the trocars were removed. The abdomen was then washed and dried. The skin was then closed using 4-0 Monocryl in a subcuticular fashion. The abdomen was washed and dried and Skin Affix was place over incisions. Patient tolerated the procedure well without any complications and was taken to the recovery room in stable condition. Anesthesia Type general Estimated Blood Loss Estimated blood loss (mL): minimal Specimens/Packing Specimens Removed gallbladder SAYRA GRUBER DO Mar 04, 2023 10:09
[2023-03-04] MEDS ORDERED: DOCU-143 PO (10:10)
[2023-03-04] MEDS ORDERED: ACHD5005 PO (10:10)
--- NOTE | 2023-03-04 10:11 | Discharge Inst-Simple/Standard ---
Discharge Inst-Standard Discharge Medications New, Converted or Re-Newed RX: Transmitted to Pharmacy Patient Instructions/Follow Up Plan of Care/Instructions/FU: 2 weeks nicole Activity as Tolerated: No Discharge Diet: Regular Diet Other Inst to Patient Follow up Appt: Make appointment for 2 weeks. Instructions: No lifting greater than 10 pounds. No strenuous activity. May shower in 24 hours, no tub bath or soaking. Use incentive spirometer at home as directed. No Smoking Skin/Wound Care: You have special glue over incision, it will fall off on it's own. Symptoms to Report: Appetite Changes, Extremity Discoloration, Numbness/Tingling, Swelling Increased, Bleeding Excessive, Eyesight Changes, Pain Increased, Urine Color Change, Constipation(Persistent), Fever over 101 degree F, Pain/Pressure in chest, Urinating Difficulty, Cough Up/Vomit Blood, Heart Beat Irreg/Pounding, Pain/Pressure in jaw, Vaginal Bleeding Increase, Cramps in feet or legs, Lightheadedness, Pain/Pressure in shoulder, Diarrhea(Persistent), Memory Changes Suddenly, Questions/Concerns, Weight gain consecutive days, Dizziness/Fainting, Nausea/Vomiting, Shortness of Breath, Weight gain over 2 pounds. If eyes or skin turn yellow notify physician. If questions or concerns contact your physician Or seek help at emergency department. SAYRA GRUBER DO Mar 04, 2023 10:11
--- NOTE | 2023-03-04 10:14 | Anesthesia-General Post-Op ---
General Patient Condition Mental Status/LOC: Same as Preop Cardiovascular: Satisfactory Nausea/Vomiting: Absent Respiratory: Satisfactory Pain: Controlled Complications: Absent Post Op Complications Complications None Follow Up Care/Instructions Patient Instructions None needed. Anesthesia/Patient Condition Patient Condition Patient is doing well, no complaints, stable vital signs, no apparent adverse anesthesia problems. No complications reported per nursing. MELLISSA PAYAN CRNA Mar 04, 2023 10:14
[2023-03-04] MEDS ORDERED: MEPERIDINE INJ 50 MG/ML VIAL IVP ONE (10:15)
[2023-03-04] MEDS ORDERED: fentaNYL INJECTION 100 MCG/2 ML VIAL IVP ONE (10:15)
[2023-03-04] MEDS ORDERED: morphine INJ 10 MG/ML 1ML (SYR OR VIAL) IVP ONE (10:15)
--- NOTE | 2023-03-04 10:52 | Diagnostic Imaging Report ---
INDICATION: Cholecystectomy, abdominal pain Intraoperative fluoroscopy views were obtained for operative cholangiography. 28 views were obtained, 7.1 seconds of fluoroscopy time were used. 5.59 mGy of exposure. There has been contrast injection via the cystic duct stump. The biliary tree is nondilated. There are no filling defects in the common duct. Contrast passes to the duodenum without obstruction. IMPRESSION: Unremarkable operative cholangiogram. Dictated by: Dictated on workstation # [id number]
[2023-03-04] MEDS: ONDANSETRON INJECTION 4 MG/2 ML (SDV) IVP PRN (11:27)
[2023-03-04] MEDS ORDERED: HYDROcodone/ACETAMINOPHEN 5 MG/325 MG TABLET ONE (11:49)
[2023-03-04] MEDS ORDERED: ONDANSETRON INJECTION 4 MG/2 ML (SDV) IVP ONE (12:00)
[2023-03-04] MEDS ORDERED: HYDROcodone/ACETAMINOPHEN 5 MG/325 MG TABLET PO ONE (12:00)
== END 2023-03-04 12:40 | disposition home or self-care (01) ==
LOC: SDC 07:11
PROVIDERS: ATTEND Surgery
DX: K82.8 Other specified diseases of gallbladder (principal); K81.1 Chronic cholecystitis; K42.9 Umbilical hernia without obstruction or gangrene; E66.01 Morbid (severe) obesity due to excess calories; Z68.41 Body mass index [BMI] 40.0-44.9, adult
CPT/HCPCS: 76000; 87081; 88304